=== PATIENT | female | born 1965 | race Caucasian/White ===

== ENCOUNTER 2022-11-16 08:30 | Outpatient (CLI) | payer MEDICAID ==
[2022-11-16 14:53] LABS: BASOPHILS # (AUTO) 0.1 10^3/uL (0.0-0.1); BASOPHILS % (AUTO) 1.1 %; EOSINOPHILS # (AUTO) 0.2 10^3/uL (0.0-0.7); EOSINOPHILS % (AUTO) 3.6 %; HCT - HEMATOCRIT 41.4 % (37.0-47.0); HGB - HEMOGLOBIN 14.1 g/dL (12.0-16.0); LYMPHOCYTES # (AUTO) 1.6 10^3/uL (1.5-3.5); LYMPHOCYTES % (AUTO) 35.3 %; MEAN CORPUSCULAR HGB CONC 34.1 g/dL (32.0-36.0); MEAN CORPUSCULAR VOLUME 93.9 fL (81.0-99.0); MEAN PLATELET VOLUME 10.9 fL (7.9-10.8); MONOCYTES # (AUTO) 0.3 10^3/uL (0.0-1.0); MONOCYTES % (AUTO) 6.5 %; NEUTROPHILS # (AUTO) 2.4 10^3/uL (1.5-6.6); NEUTROPHILS % (AUTO) 53.3 %; PLT - PLATELET COUNT 247 10^3/uL (130-450); RED BLOOD COUNT 4.41 10^6/uL (4.20-5.40); RED CELL DISTRIBUTION WIDTH 11.9 % (12.0-15.0); WHITE BLOOD COUNT 4.5 x10^3/uL (4.8-10.8)
[2022-11-16 15:40] LABS: ALBUMIN 4.2 g/dL (3.2-5.5); ALBUMIN/GLOBULIN RATIO 1.4 (1.0-2.2); ALKALINE PHOSPHATASE 68 IU/L (42-121); ALT ALANINE AMINOTRANSFERASE 16 IU/L (10-60); AST ASPARTATE AMINOTRANSFERASE 19 IU/L (10-42); BILIRUBIN,TOTAL 0.5 mg/dL (0.2-1.0); BUN - BLOOD UREA NITROGEN 15 mg/dL (6-20); CALCIUM 9.5 mg/dL (8.5-10.3); CARBON DIOXIDE - CO2 29 mmol/L (21-32); CHLORIDE 103 mmol/L (101-111); CHOL/HDL RATIO 3.7 (<4.4); CHOLESTEROL 198 mg/dL; CREATININE 0.9 mg/dL (0.6-1.3); GFR - MDRD 65 (>89); GLUCOSE 93 mg/dL (74-104); HDL CHOLESTEROL 54 mg/dL; LDL CHOLESTEROL,CALCULATED 113 mg/dL; LDL/HDL RATIO 2.1 (<4.4); POTASSIUM 4.4 mmol/L (3.5-4.5); SODIUM 135 mmol/L (135-145); TOTAL PROTEIN 7.1 g/dL (6.4-8.9); TRIGLYCERIDES 155 mg/dL (48-352); VLDL CHOLESTEROL 31 mg/dL
== END 2022-11-16 08:31 | disposition home or self-care (01) ==
LOC: LAB.S 08:30
PROVIDERS: ATTEND Nurse Practitioner Acute Care
DX: Z13.21 Encounter for screening for nutritional disorder (principal); Z13.228 Encounter for screening for other metabolic disorders; Z13.220 Encounter for screening for lipoid disorders; Z13.29 Encounter for screening for other suspected endocrine disorder; Z13.0 Encounter for screening for diseases of the blood and blood-forming organs and certain disorders involving the immune mechanism
CPT/HCPCS: 36415; 80053; 80061; 82306; 83721; 84443; 85025

== ENCOUNTER 2022-11-21 09:45 | Outpatient (CLI) | payer MEDICAID ==
--- NOTE | 2022-11-29 09:36 | Mammography Report ---
BILATERAL DIGITAL SCREENING MAMMOGRAM 3D/2D WITH EXAGGERATED CC: 11/21/2022 CLINICAL: Routine screening. No prior exams were available for comparison. There are scattered areas of fibroglandular density in both breasts (category b / 25%-50% glandular t issue). There is an irregular equal density asymmetry with a spiculated margin in the right breast at 11 o'cl ock middle depth. There is an oval low density asymmetry with a circumscribed margin in the left breast at 6 o'clock an terior depth. No other significant masses or calcifications are seen in either breast. IMPRESSION: INCOMPLETE: NEEDS ADDITIONAL IMAGING EVALUATION The irregular equal density asymmetry in the right breast at 11 o'clock middle depth is indeterminate . Additional views with possible ultrasound are recommended. The oval low density asymmetry in the left breast at 6 o'clock anterior depth is indeterminate. Gavin tional views with possible ultrasound are recommended. Based on the Tyrer Cuzick model (a risk assessment model) the patients lifetime risk is 7.6% and her 10 year risk is 2.6%. According to the ACR, ACS, and NCCN guidelines, an annual breast MRI exam dagmar g with mammogram is recommended if the patients lifetime risk is 20% or greater. This exam was interpreted at Station ID: [id number]. NOTE: For mammograms, a report in lay terms will be sent to the patient. Approximately 15% of breast malignancies will not be visualized mammographically. In the management of a palpable breast mass, a negative mammogram must not discourage biopsy of a clinically suspicious lesion. Electronically Signed By: Madeline valencia/gabriella:11/29/2022 09:24:30 ACR BI-RADS Category 0: Incomplete 3340F PARENCHYMAL PATTERN: (A) - The breast(s) demonstrate(s) scattered fibroglandular densities. BI-RADS CATEGORY: (0) - 0 Mammo and [place] [id number] Immediate follow-up LATERALITY: (B)
== END 2022-11-21 09:46 | disposition home or self-care (01) ==
LOC: DI.S 09:45
PROVIDERS: ATTEND Nurse Practitioner Acute Care
DX: Z12.31 Encounter for screening mammogram for malignant neoplasm of breast (principal); R92.8 Other abnormal and inconclusive findings on diagnostic imaging of breast

== ENCOUNTER 2022-12-21 09:17 | Outpatient (CLI) | payer MEDICAID ==
--- NOTE | 2022-12-22 12:34 | Ultrasound Report ---
LIMITED ULTRASOUND OF LEFT BREAST: 12/21/2022 CLINICAL: Patient returns today to evaluate asymmetries in bilateral breasts. Comparison is made to exams dated: 12/21/2022 mammogram and 11/21/2022 mammogram - [facility]. Color flow and real-time ultrasound of the left breast 6 o'clock, and retroareolar regions were perf ormed. Glaser scale images of the real-time examination were reviewed. There is a 1.1 cm x 0.6 cm x 0.7 cm wider than tall oval mass in the left breast central to the nippl e in the retroareolar region. This oval mass is hypoechoic. This correlates with mammography findin gs. Color flow imaging demonstrates that there is no vascularity present. IMPRESSION: PROBABLY BENIGN The 1.1 cm x 0.6 cm x 0.7 cm wider than tall oval mass in the left breast most likely is a fibroadeno ma and is probably benign. A follow-up left ultrasound in 6 months is recommended to demonstrate stability. Findings and recommendations were conveyed to the patient during today's evaluation. This exam was interpreted at Station ID: [id number]. Electronically Signed By: Rodrigo Quiñonez M.D. aty/:12/21/2022 11:01:25 Ultrasound BI-RADS: 3 Probably benign BI-RADS CATEGORY: (3) - 3 Ultrasound [id number] 6 month follow-up LATERALITY: (L)
--- NOTE | 2022-12-22 12:34 | Ultrasound Report ---
LIMITED ULTRASOUND OF RIGHT BREAST: 12/21/2022 CLINICAL: Patient returns today to evaluate asymmetries in bilateral breasts. Comparison is made to exams dated: 12/21/2022 ultrasound, 12/21/2022 mammogram, and 11/21/2022 mammogram - [facility]. Color flow and real-time ultrasound of the right breast 11-12 o'clock region were performed. Glaser sc [place] images of the real-time examination were reviewed. No significant abnormalities were seen sonographically in the right breast. IMPRESSION: NEGATIVE There is no sonographic evidence of malignancy. There is no abnormality seen in the right breast to correspond with the mammography finding which lik gurwinder represents normal fibroglandular tissue. A 1 year screening mammogram is recommended. However, there are addtional findings in the left breas t reported separately. Please see left breast ultrasound report for details. Findings and recommendations were conveyed to the patient during today's evaluation. This exam was interpreted at Station ID: [id number]. Electronically Signed By: Rodrigo Quiñonez M.D. aty/:12/21/2022 11:00:10 Ultrasound BI-RADS: 1 Negative BI-RADS CATEGORY: (1) - 1 Mammogram [id number] 1 year screening LATERALITY: (B)
--- NOTE | 2022-12-22 12:34 | Mammography Report ---
BILATERAL DIGITAL DIAGNOSTIC MAMMOGRAM 3D/2D WITH SPOT COMPRESSION: 12/21/2022 CLINICAL: Patient returns today to evaluate asymmetries in bilateral breasts. Comparison is made to exam dated: 11/21/2022 mammogram - [facility]. There are scattered areas of fibroglandular density in both breasts (category b / 25%-50% glandular t issue). The equal density asymmetry in the right breast at 11 o'clock middle depth is no longer seen. This i s not seen in additional views and likely represented summation artifact. There is an oval low density asymmetry with a circumscribed margin in the left breast central to the nipple anterior depth. This is seen in additional views. No other significant masses or calcifications are seen in either breast. IMPRESSION: INCOMPLETE: NEEDS ADDITIONAL IMAGING EVALUATION An ultrasound is recommended to confirm the no longer seen equal density asymmetry in the right breas t at 11 o'clock middle depth. This is scheduled to immediately follow this exam. The oval low density asymmetry in the left breast central to the nipple anterior depth is indetermina te. An ultrasound is recommended for further evaluation and is scheduled to immediately follow this examination. Based on the Tyrer Cuzick model (a risk assessment model) the patients lifetime risk is 7.6% and her 10 year risk is 2.6%. According to the ACR, ACS, and NCCN guidelines, an annual breast MRI exam dagmar g with mammogram is recommended if the patients lifetime risk is 20% or greater. This exam was interpreted at Station ID: [id number]. NOTE: For mammograms, a report in lay terms will be sent to the patient. Approximately 15% of breast malignancies will not be visualized mammographically. In the management of a palpable breast mass, a negative mammogram must not discourage biopsy of a clinically suspicious lesion. Electronically Signed By: Rodrigo Quiñonez M.D. aty/:12/21/2022 10:58:50 ACR BI-RADS Category 0: Incomplete 3340F PARENCHYMAL PATTERN: (A) - The breast(s) demonstrate(s) scattered fibroglandular densities. BI-RADS CATEGORY: (0) - 0 Ultrasound [id number] Immediate follow-up LATERALITY: (B)
== END 2022-12-21 09:18 | disposition home or self-care (01) ==
LOC: DI 09:17
PROVIDERS: ATTEND Nurse Practitioner Acute Care
DX: N63.25 Unspecified lump in the left breast, overlapping quadrants (principal)

== ENCOUNTER 2023-01-04 11:37 | Outpatient (CLI) | payer MEDICAID ==
[2023-01-04 14:27] LABS: BILIRUBIN,URINE NEGATIVE (NEGATIVE); GLUCOSE, URINE (UA) NEGATIVE (NEGATIVE); KETONES,URINE (UA) NEGATIVE (NEGATIVE); LEUKOCYTE ESTERASE, URINE NEGATIVE (NEGATIVE); NITRITE,URINE NEGATIVE (NEGATIVE); OCCULT BLOOD,URINE NEGATIVE (NEGATIVE); PROTEIN,URINE NEGATIVE (NEGATIVE); UROBILINOGEN,URINE 0.2 (NORMAL) E.U./dL (NORMAL)
[2023-01-04 14:52] LABS: BACTERIA,URINE None Seen /HPF (None Seen); CLARITY,URINE CLEAR (CLEAR); RBC,URINE None Seen /HPF (0-5); SQUAMOUS EPITHELIAL CELL,UR NONE SEEN (<= Few); WBC,URINE 0-3 /HPF (0-5)
== END 2023-01-04 11:38 | disposition home or self-care (01) ==
LOC: LAB.S 11:37
PROVIDERS: ATTEND Nurse Practitioner Acute Care
DX: R30.0 Dysuria (principal)
CPT/HCPCS: 81001; 87086

== ENCOUNTER 2023-10-13 13:01 | Emergency (ER) | payer OTHER ==
[2023-10-13 13:22] VITALS: O2SAT 100
--- NOTE | 2023-10-13 14:04 | ED Physician Documentation ---
History of Present Illness - Stated complaint Stated Complaint: NECK, LT SHOULDER, LT ARM PX - Chief complaint Chief Complaint: Ext Problem - Additonal information Additional information: 58-year-old female with history of hypertension presents emergency department for left neck pain that is radiating down her left arm. Patient says that she was traveling for the last month or so and [facility] in [place] where she had ongoing flares of pain to her left neck radiating down to her left arm she saw a doctor in [facility] who said that this is most likely arthritis versus impinged nerve and gave her Valium as well as tramadol which did help take the edge off and she is almost out of these medications. Patient says that the flight home yesterday was miserable and definitely reexacerbated the pain that she has been experiencing. She attempted to get in with her primary care provider and was unable to do so for the next month or so. Patient is hoping for an emergent MRI for this pain today. No new weakness no vision changes no illnesses no fevers or chills. PD PAST MEDICAL HISTORY - Past Medical History Cardiovascular: Hypertension - Past Surgical History Past Surgical History: Yes Ortho: Hip replacement - Present Medications Home Medications: Ambulatory Orders Medication Instructions Recorded Confirmed Cyclobenzaprine [Flexeril] 10 mg PO TID PRN 6 Days #20 tablet 10/13/23 Gabapentin [Neurontin] 100 mg PO TID #30 cap 10/13/23 - Allergies Allergies/Adverse Reactions: Allergies Allergy/AdvReac Type Severity Reaction Status Date / Time No Known Drug Allergies Allergy Verified 10/13/23 13:18 - Social History Does the pt smoke?: No Smoking Status: Former smoker Does the pt drink ETOH?: Yes Does the pt have substance abuse?: No PD ED PE NORMAL - Vitals Vital signs reviewed: Yes - General General: Alert and oriented X 3, No acute distress, Well developed/nourished - HEENT HEENT: Atraumatic, PERRL, EOMI - Neck Neck: Supple, no meningeal sign, No bony TTP, No adenopathy, C-Spine cleared by NEXUS criteria - Cardiac Cardiac: RRR - Back Back: No CVA TTP - Derm Derm: Normal color, Warm and dry, No rash - Neuro Neuro: Alert and oriented X 3, curriculum director 2-12 intact, No motor deficit, No sensory deficit, Normal speech Eye Opening: Spontaneous Motor: Obeys Commands Verbal: Oriented GCS Score: 15 - Psych Psych: Normal mood Results - Vitals Vitals: Vital Signs - 24 hr 10/13/23 10/13/23 13:08 16:50 Temperature 36.3 C L Heart Rate 69 60 Respiratory 18 18 Rate Blood Pressure 159/92 H 145/95 H O2 Saturation 100 100 Oxygen O2 Source Room air PD Medical Decision Making - ED course ED course: 58-year-old female presents emergency department for neck pain that is radiating down to her left arm. She was hoping for an emergent MRI. For the patient that unfortunately this is not me emergent MRI criteria. She has not taken anything for the pain today and feels like she is worried about running out of her tramadol and Valium that she has at home. While patient was here we gave her some Tylenol, Flexeril, gabapentin, Toradol and she is feeling significantly better. I believe that she is experiencing nerve pain from possible pinched nerve in her cervical region. I have sent a prescription of gabapentin as well as Flexeril to her preferred pharmacy and she is told to follow-up with her primary care provider soon as possible for further evaluation and outpatient workup such as possible outpatient MRI physical therapy massage therapy. Patient was given return precautions all questions answered she is safe for discharge at this time. She is told to not continue to take her Valium with the gabapentin and Flexeril. Departure - Departure Disposition: 01 Home, Self Care Clinical Impression: Strain of neck, Pinched cervical nerve root Instructions: ED Cervical Radiculopathy Prescriptions: Cyclobenzaprine [Flexeril] 10 mg PO TID PRN 6 Days #20 tablet PRN Reason: Spasms Gabapentin [Neurontin] 100 mg PO TID #30 cap Comments: Thank you for trusting us with your care and I am sorry that you have been experiencing this neck pain. I believe that this is most likely due to an impinged nerve. As we discussed I want you to be very cognizant on doing what ever he can to stay relaxed and not tense up as this is going to make the pain worse. I am prescribing a medication called cyclobenzaprine also known as Flexeril this is a muscle relaxer you can take it up to 3 times a day as needed for pain I am also prescribing you something called gabapentin you can take this up to 3 times a day for nerve pain. You can take 1000 mg of Tylenol every 8 hours and you can choose between ibuprofen or Aleve as an NSAID as well. I prefer Aleve as it is only a twice a day dosing 500 mg every 12 hours or as ibuprofen you have to take every 6 hours. Apply ice 20 minutes at a time and heat 20 minutes at a time follow-up with your primary care provider let her know about today's ER visit and I would strongly consider doing some physical therapy and acupuncture to help with this pain. Wishing you a speedy recovery. Forms: PCP List Discharge Date/Time: 10/13/23 16:50
[2023-10-13] MEDS: ACETAMINOPHEN 325 MG TABLET PO STA (15:12)
[2023-10-13] MEDS: CYCLOBENZAPRINE 10 MG TABLET PO STA (15:12)
[2023-10-13] MEDS: GABAPENTIN 100 MG CAPSULE PO STA (15:12)
[2023-10-13] MEDS: KETOROLAC 30 MG/ML VIAL IM STA (15:12)
[2023-10-13 17:01] VITALS: BP 145/95
== END 2023-10-13 16:50 | disposition home or self-care (01) ==
LOC: ED 13:01
DX: S16.1XXA Strain of muscle, fascia and tendon at neck level, initial encounter (principal); X58.XXXA Exposure to other specified factors, initial encounter; G58.8 Other specified mononeuropathies; I10 Essential (primary) hypertension; Z87.891 Personal history of nicotine dependence
CPT/HCPCS: 96372; 99283; A9270

== ENCOUNTER 2023-12-20 10:25 | Outpatient (CLI) | payer OTHER ==
--- NOTE | 2023-12-25 08:10 | Ultrasound Report ---
LIMITED ULTRASOUND OF LEFT BREAST: 12/20/2023 CLINICAL: Patient returns for a 6 month follow up of the left breast. Comparison is made to exams dated: 12/21/2022 ultrasound, 12/21/2022 mammogram, and 11/21/2022 mammogram - [facility]. Color flow ultrasound of the left breast 6 o'clock, and retroareolar regions was performed. Glaser sc [place] images of the real-time examination were reviewed. There is a 1.1 cm x 0.6 cm x 0.7 cm oval hypoechoic mass with circumscribed margins at 6 o'clock in t he retroareolar region, stable since 12/22/2023. This finding previously corresponding to mammography f indings. Color flow imaging demonstrates that there is no vascularity present. IMPRESSION: INCOMPLETE: NEEDS ADDITIONAL IMAGING EVALUATION Left breast 1.1 cm oval circumscribed mass, stable since 12/21/2022. 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 Patient is due for bilateral mammogram and will return on another day to complete diagnostic imaging evaluation. Findings and recommendations were conveyed to the patient during today's evaluation. This exam was interpreted at Station ID: [id number]. Electronically Signed By: Oksana Nevarez M.D., Ph.D. eb/:12/25/2023 02:09:27 Entry: johnny - 12/25/2023 07:54:37 Ultrasound BI-RADS: 0 Indeterminate BI-RADS CATEGORY: (0) - 0 Unspecified - other [id number] Immediate follow-up LATERALITY: (B)
== END 2023-12-20 10:26 | disposition home or self-care (01) ==
LOC: DI 10:25
PROVIDERS: ATTEND Nurse Practitioner Acute Care
DX: N63.25 Unspecified lump in the left breast, overlapping quadrants (principal)